=== PATIENT | male | born 1955 | race African-American/Black ===

== ENCOUNTER 2017-04-11 14:15 | Emergency (ER) | payer MEDICAID ==
[~2017-04-11] VITALS: Ht 182.9 cm; Wt 90.7 kg
[~2017-04-11 14:15] MED LIST: CLARITIN-D 121 EAC1 ORAL; IRON325 M1 PO; NKM
[2017-04-11 15:00] VITALS: BP 126/77
[2017-04-11] MEDS ORDERED: ZITHROMAX250 MG ORAL (15:07)
[2017-04-11 15:21] VITALS: BP 126/77
--- NOTE | 2017-04-11 15:57 | Emergency Room Report ---
History of Present Illness General Chief Complaint: Sore Throat Source: Patient Present Illness [facility] The patient is a 61-year-old male presenting for sore throat and subjective fever for the past day. He also admits to productive cough with white sputum. He states was treated for an ear infection 2 weeks prior with both oral antibiotics and eardrops. He states the pain of the ear completely resolved. Pain of the throat is now described as an 8/10 dull ache back of the throat and does not radiate. Pain worse with swallowing. He states he has noticed a swelling to the back of the throat. He denies any sick contacts recent travel. Denies any other symptoms including N, V, rash, neck pain/stiffness, dizziness Allergies: Coded Allergies: FISH DERIVED (Verified Allergy, Unknown, 06/13/16) PEANUT (Verified Allergy, Unknown, 06/13/16) Patient History Past Medical History: see triage record Pertinent Family History: none Reviewed Nursing Documentation: PMH: Agreed, PSxH: Agreed Nursing Documentation-PMH Past Medical History: No History, Except For Hx Asthma: Yes Review of Systems All Other Systems: negative except mentioned in HPI Physical Exam Vital Signs Date Time Temp Pulse Resp B/P Pulse Ox O2 Delivery O2 Flow Rate FiO2 04/11/17 14:43 99.9 107 16 126/77 97 Room Air Sp02 EP Interpretation: reviewed, normal General Appearance: no apparent distress, alert, GCS 15, non-toxic Head: normocephalic, atraumatic Eyes: bilateral eye PERRL, bilateral eye normal inspection ENT: hearing grossly normal, no angioedema, normal voice, TMs + canals normal, uvula midline, tonsillar swelling, pharyngeal erythema Neck: full range of motion, supple/symm/no masses Respiratory: chest non-tender, lungs clear, normal breath sounds, no wheezing, speaking full sentences Musculoskeletal: back normal, gait/station normal, normal range of motion, non- tender Neurologic: alert, oriented x3, responsive, motor strength/tone normal, sensory intact, speech normal Psychiatric: judgement/insight normal, memory normal, mood/affect normal, no suicidal/homicidal ideation Skin: normal color, no rash, warm/dry, well hydrated Lymphatic: adenopathy - cervical Medical Decision Making PA Attestation Dr. Rojo is my supervising physician. Patient management was discussed with my supervising physician Diagnostic Impression: Primary Impression: Pharyngitis, acute Qualified Codes: J02.9 - Acute pharyngitis, unspecified ER Course The patient is a 61-year-old male presenting for sore throat and subjective fever Differential diagnosis include but not limited to pharyngitis, sinusitis, AOM, bronchitis, PNA Physical exam: Pt is mildly tachycardic and temperature is elevated to 99.9F. Afebrile. No apparent distress HEENT exam: There is bilateral tonsillar edema, erythema. Uvula midline. Moist mucous membranes. There is bilateral cervical lymphadenopathy. Lungs are clear to auscultation bilaterally Skin is warm and dry. No rash The patient will be discharged home with a prescription for azithromycin and is given ER precautions. Patient will followup with primary care Last Vital Signs Date Time Temp Pulse Resp B/P Pulse Ox O2 Delivery O2 Flow Rate FiO2 04/11/17 14:43 99.9 107 16 126/77 97 Room Air Status: improved Disposition: HOME, SELF-CARE Condition: Improved Scripts Azithromycin* (ZITHROMAX*) 250 Mg Tablet 250 MG ORAL DAILY, #6 TAB 0 Refills Take two tables once daily for 1 day, then one tablet once daily for 4 days. Prov: ARABELLA SADLER 04/11/17 Referrals: NON PHYSICIAN (PCP) Patient Instructions: Pharyngitis Additional Instructions: I discussed my findings with the patient. All questions and concerns have been answered. Treatment and medication compliance have been addressed. I advised the patient that they need to follow up with PMD in 3-5 days. Return to ED if pain remains or worsens, cough worsens or remains, you notice blood in your sputum, you notice wheezing, you experience a fever, or if needed for any reason. Patient verbalized understanding of discharge instructions. ARABELLA SADLER April 11, 2017 15:57
== END 2017-04-11 15:40 | disposition home or self-care (01) ==
LOC: EMR 15:40
DX: J02.9 Acute pharyngitis, unspecified (principal); R59.0 Localized enlarged lymph nodes; R50.9 Fever, unspecified; R05 Cough; Z91.010 Allergy to peanuts; Z91.018 Allergy to other foods; J45.909 Unspecified asthma, uncomplicated
CPT/HCPCS: 99283

== ENCOUNTER 2017-06-26 22:47 | Emergency (ER) | payer MEDICAID ==
[~2017-06-26] VITALS: Ht 182.9 cm; Wt 81.6 kg
[~2017-06-26 22:47] MED LIST changes: +ZITHROMAX250 MG ORAL
[2017-06-26] MEDS ORDERED: BENADRYL25 M3 PO (23:03)
[2017-06-26 23:05] VITALS: BP 117/80
--- NOTE | 2017-06-26 23:21 | Emergency Room Report ---
History of Present Illness General Chief Complaint: Fever Source: Patient Present Illness HPI This is a 61-year-old male with no past medical history. His fiance said that he has a history of smoking when he was younger. Patient denies any smoking history now. Patient presents with chief complaint denies weakness or weight loss. Loss about 12 pounds in last week. This is unintentional. Also with left-sided chest pain and shortness of breath. She's been noting this for a while too. No fever or chills. No nausea no vomiting. No trauma. Allergies: Coded Allergies: FISH DERIVED (Verified Allergy, Unknown, 06/13/16) PEANUT (Verified Allergy, Unknown, 06/13/16) Patient History Past Medical History: none, see triage record, old chart reviewed Past Surgical History: none Pertinent Family History: none Social History: Denies: smoking - History of Immunizations: other Reviewed Nursing Documentation: PMH: Agreed, PSxH: Agreed Nursing Documentation-PMH Past Medical History: No History, Except For Hx Asthma: Yes Review of Systems Constitutional: Reports: malaise, weakness Eye: Denies: blurred vision, eye pain ENT: Denies: ear pain, nose congestion, throat swelling Respiratory: Denies: cough, shortness of breath Cardiovascular: Reports: chest pain, Denies: palpitations Gastrointestinal: Denies: abdominal pain, diarrhea, nausea, vomiting Musculoskeletal: Denies: back pain, joint pain Skin: Denies: rash Neurological: Denies: headache, numbness Endocrine: Denies: increased thirst, increased urine Hematologic/Lymphatic: Denies: easy bruising All Other Systems: negative except mentioned in HPI Physical Exam Vital Signs Date Time Temp Pulse Resp B/P Pulse Ox O2 Delivery O2 Flow Rate FiO2 06/26/17 22:56 102.4 134 16 117/80 98 Room Air vitals with fever Sp02 EP Interpretation: reviewed, normal General Appearance: well appearing, no apparent distress, alert Head: normocephalic, atraumatic Eyes: bilateral eye EOMI, bilateral eye PERRL ENT: hearing grossly normal, other - Thrush Neck: full range of motion, supple, no meningismus Respiratory: chest non-tender, lungs clear, normal breath sounds Cardiovascular #1: regular rate, rhythm, no murmur Gastrointestinal: normal bowel sounds, non tender, no mass, no organomegaly, no bruit, non-distended Musculoskeletal: back normal, gait/station normal, normal range of motion Psychiatric: mood/affect normal Skin: warm/dry Medical Decision Making Diagnostic Impression: Primary Impression: SIRS (systemic inflammatory response syndrome) Additional Impressions: UTI (urinary tract infection) Qualified Codes: N30.00 - Acute cystitis without hematuria Pericarditis Qualified Codes: I30.9 - Acute pericarditis, unspecified Thrush, oral Anemia Qualified Codes: D64.9 - Anemia, unspecified ER Course Patient present with chest pain, fever and weight loss. Concerning for possible neoplastic process. There is no obvious symptoms of neoplasm. He does have thrush however. He does have a urinary tract infection. I this. We' ll treat this and will have further workup as an outpatient. Explained this to the patient and family. They expressed understanding. no evidence of ACS, PE, dissection to name a few. as far as his pericardial effusion, there is no evidence of constriction. Patient has no respiratory distress or JVD. Lab Results Impression labs unremarkable EKG Diagnostic Results EKG Time: 02:21 Rate: normal Rhythm: NSR ST Segments: no acute changes Rhythm Strip Diag. Results Rhythm Strip Time: 02:21 EP Interpretation: yes Rate: 100 Rhythm: NSR, no PVC's, no ectopy Chest X-Ray Diagnostic Results Chest X-Ray Diagnostic Results : Chest X-Ray Ordered: Yes # of Views/Limited/Complete: 1 View Indication: Chest Pain EP Interpretation: Yes Interpretation: no consolidation, no effusion, no pneumothorax, other - Cardiomegaly Impression: No acute disease Interpreting ER Provider: Electronically signed by Yayo Cedillo MD CT/MRI/US Diagnostic Results CT/MRI/US Diagnostic Results : Imaging Test Ordered: CT chest Impression read by radiologist. Moderate pericardial effusion of 1.1 cm with thickening of the pericardium. Last Vital Signs Date Time Temp Pulse Resp B/P Pulse Ox O2 Delivery O2 Flow Rate FiO2 06/26/17 22:56 102.4 134 16 117/80 98 Room Air Status: improved Disposition: HOME, SELF-CARE Condition: Stable Scripts Amoxicillin/Potassium Clav 875-125* (AUGMENTIN 875-125 TABLET*) 1 Each Tablet 1 TAB ORAL TWICE A DAY, #14 TAB Prov: YAYO CEDILLO M.D. 06/27/17 Nystatin* (NYSTATIN*) 100,000 Unit/1 Ml Oral.susp 5 ML ORAL FOUR TIMES A DAY for 7 Days, ML Swish in the mouth and retain for as long as possible (several minutes) before swallowing Prov: YAYO CEDILLO M.D. 06/27/17 Ibuprofen* (MOTRIN*) 600 Mg Tablet 600 MG ORAL Q6H Y for For Pain, #30 TAB Prov: YAYO CEDILLO M.D. 06/27/17 Additional Instructions: followup with your Dr. in 2-3 days for recheck. Return if symptom worsen. YAYO CEDILLO M.D. Jun 26, 2017 23:21
[2017-06-26] MEDS ORDERED: Acetaminophen 500mg (ES) tab ORAL ONE (23:30)
[2017-06-27 00:12] LABS: BASOPHILS % (AUTO) 1.3 % (0.0-2.0); EOSINOPHILS % (AUTO) 0.4 % (0.0-3.0); LYMPHOCYTES % (AUTO) 13.5 % (20.0-45.0); MEAN CORPUSCULAR HGB CONC 33.4 G/DL (32.0-36.0); MEAN CORPUSCULAR VOLUME 87 FL (80-99); MEAN PLATELET VOLUME 5.6 FL (6.5-10.1); NEUTROPHILS % (AUTO) 76.8 % (45.0-75.0); PLATELET COUNT 379 K/UL (150-450); RED BLOOD COUNT 3.66 M/UL (4.70-6.10); RED CELL DISTRIBUTION WIDTH 13.2 % (11.6-14.8); WHITE BLOOD COUNT 5.9 K/UL (4.8-10.8)
[2017-06-27 00:15] LABS: APPEARANCE,URINE CLEAR; KETONES,URINE NEGATIVE (NEGATIVE); LEUKOCYTE ESTERASE ,URINE 2+ (NEGATIVE); NITRITE,URINE NEGATIVE (NEGATIVE); PH,URINE 5 (4.5-8.0); PROTEIN,URINE 3+ (NEGATIVE); UROBILINOGEN,URINE 1 MG/DL (0.0-1.0)
[2017-06-27 00:18] LABS: INR 1.1 (0.9-1.1); PROTHROMBIN TIME 11.8 SEC (9.30-11.50)
[2017-06-27 00:26] LABS: ALANINE AMINOTRANSFERASE 20 U/L (3-41); ALBUMIN/GLOBULIN RATIO 0.6 (1.0-2.7); ANION GAP 16 (5-15); ASPARTATE AMINO TRANSFERASE 38 U/L (5-40); CALCIUM 9.5 mg/dL (8.6-10.2); CARBON DIOXIDE 24 mEQ/L (20-30); CHLORIDE 93 mEQ/L (98-107); CREATININE 1.1 mg/dL (0.7-1.2); GLOMERULAR FILTRATION RATE > 60 mL/min (>60); HEMOLYSIS 0; SODIUM 133 mEQ/L (135-145); TOTAL PROTEIN 10.2 g/dL (6.6-8.7)
[2017-06-27 00:26] LABS: BACTERIA,URINE MODERATE /HPF; MUCUS,URINE FEW /LPF (NONE/OCC); RBC,URINE TNTC /HPF (0 - 0); SQUAMOUS EPITHELIAL CELL,UR FEW /LPF (NONE/OCC); WBC,URINE 60-80 /HPF (0 - 0)
[2017-06-27 00:27] LABS: ICTOTEST NEGATIVE
[2017-06-27] MEDS ORDERED: cefTRIAXone 1 GM in NS 55 ML IVPB ONE (01:00)
[2017-06-27] MEDS ORDERED: NYSTATIN100000 UN1 ORAL (02:24)
[2017-06-27] MEDS ORDERED: IBUPROFEN600 MG ORAL (02:24)
[2017-06-27] MEDS ORDERED: AUGMENTIN 875-1 EAC1 ORAL (02:24)
[2017-06-27 02:40] VITALS: BP 135/78
[2017-06-27 02:45] VITALS: BP 135/78
--- NOTE | 2017-06-27 11:23 | Diagnostic Imaging Report ---
Indication: SOB Technique: One view of the chest Comparison: 12/23/2011 Findings: The heart is enlarged. This is a new finding. There it is possible slight blunting of left costophrenic angle, small effusion not excludable. Is some atelectasis at the left lung base. Left upper lung, right lung and pleural space are clear. Impression: Cardiomegaly, new since 2011 Suspect small left pleural effusion and left basilar atelectasis
--- NOTE | 2017-06-27 11:37 | Diagnostic Imaging Report ---
ndication: Chest pain Technique: IV administration nonionic contrast. Spiral acquisitions obtained from the lung bases to the lung apices. Multiplanar and 3-D reconstructions were generated. Total dose length product 939 mGycm. CTDIvol(s) 12, 63, 25 mGy. Dose reduction achieved using automated exposure control Comparison: None Findings: Pulmonary arterial is suboptimal. There are no gross large vessel central pulmonary emboli, the peripheral emboli cannot be confidently excluded, PICC in the upper lobes. No evidence of thoracic aortic aneurysm or dissection demonstrated. Classic branching anatomy of the great neck vessels. Normal caliber pulmonary arteries. No evidence of right ventricular dilatation. There is a small left pleural effusion. Atelectasis and consolidation at the left lung base. Other more fine linear and reticular opacities in the left lower lobe and posterior left upper lobe likely represent areas of scarring scarring also seen in the anterolateral right lower lobe, medial right middle lobe, and right lung apex. There is a pericardial effusion which is circumferential, measures up to 17 mm in thickness, extends well up the aortic root. There are prominent prevascular space lymph nodes, which measure up to 15 mm long axis dimension. Prominent paratracheal lymph nodes measure up to 3 cm long axis dimension. There are also prominent borderline enlarged bilateral axillary nodes prominent bilateral cervical nodes are also evident. The bones are unremarkable. The included upper abdominal anatomy is remarkable for the presence of and splenic hilar lymph nodes. Impression: Limited exam due to suboptimal opacification of the pulmonary arteries Pericardial effusion, measuring up to 17 mm in thickness Small left pleural effusion Bilateral atelectatic changes and scarring, as described above. The above findings are in agreement with the preliminary report provided overnight by [facility] cardiology service Mediastinal and axillary borderline lymphadenopathy. This finding is not described on the preliminary report, was discussed by phone with Dr. Brewer in the emergency room at the time of interpretation The CT scanner at [facility] is accredited by the [employer] and the scans are performed using protocols designed to limit radiation exposure to as low as reasonably achievable to attain images of sufficient resolution adequate for diagnostic evaluation.
== END 2017-06-27 02:45 | disposition home or self-care (01) ==
LOC: EMR 23:20
DX: R65.10 Systemic inflammatory response syndrome (SIRS) of non-infectious origin without acute organ dysfunction (principal); N39.0 Urinary tract infection, site not specified; I31.9 Disease of pericardium, unspecified; B37.0 Candidal stomatitis; D64.9 Anemia, unspecified; J45.909 Unspecified asthma, uncomplicated; J90 Pleural effusion, not elsewhere classified; R53.1 Weakness
CPT/HCPCS: 36415; 71010; 71275; 80053; 80300; 81001; 83605; 85025; 85610; 85730; 86703; 87040; 87086; 93005; 96360; 96361; 96375; 99284; J0696; Q9967

== ENCOUNTER 2017-06-29 11:52 | Emergency (ER) | payer MEDICAID ==
[2017-06-29] VITALS (7 sets, daily range): BP systolic 102–135; BP diastolic 65–87
[~2017-06-29] VITALS: Ht 182.9 cm; Wt 85.7 kg
[~2017-06-29 11:52] MED LIST changes: +AUGMENTIN 875-1 EAC1 ORAL; +BENADRYL25 M3 PO; +IBUPROFEN600 MG ORAL; +NYSTATIN100000 UN1 ORAL
[2017-06-29 12:37] LABS: BASOPHILS % (AUTO) 1.4 % (0.0-2.0); LYMPHOCYTES % (AUTO) 7.4 % (20.0-45.0); MEAN CORPUSCULAR HGB CONC 31.3 G/DL (32.0-36.0); MEAN CORPUSCULAR VOLUME 86 FL (80-99); MEAN PLATELET VOLUME 6.4 FL (6.5-10.1); MONOCYTES % (AUTO) 9.2 % (1.0-10.0); PLATELET COUNT 391 K/UL (150-450); RED BLOOD COUNT 3.58 M/UL (4.70-6.10); RED CELL DISTRIBUTION WIDTH 13.5 % (11.6-14.8); WHITE BLOOD COUNT 6.9 K/UL (4.8-10.8)
[2017-06-29] MEDS ORDERED: Calcium Gluconate 1gm/10ml vial IVP ONE (12:45)
[2017-06-29] MEDS ORDERED: Diltiazem 25mg/5ml IV ONE ×2 (12:45→14:15)
[2017-06-29 13:04] LABS: TROPONIN I < 0.30 ng/mL (<=0.30)
[2017-06-29 13:08] LABS: ALANINE AMINOTRANSFERASE 25 U/L (3-41); ALBUMIN/GLOBULIN RATIO 0.7 (1.0-2.7); ANION GAP 14 (5-15); ASPARTATE AMINO TRANSFERASE 30 U/L (5-40); CARBON DIOXIDE 22 mEQ/L (20-30); CHLORIDE 99 mEQ/L (98-107); CREATININE 0.9 mg/dL (0.7-1.2); GLOMERULAR FILTRATION RATE > 60 mL/min (>60); HEMOLYSIS 1; POTASSIUM 4.1 mEQ/L (3.4-4.9); SODIUM 135 mEQ/L (135-145); TOTAL PROTEIN 8.7 g/dL (6.6-8.7)
[2017-06-29 13:18] LABS: CKMB 1.6 ng/mL (< 6.7)
--- NOTE | 2017-06-29 13:34 | Emergency Room Report ---
History of Present Illness General Chief Complaint: Chest Pain Source: Patient Present Illness HPI 61-year-old male no significant past medical history presenting with chest pain and shortness of breath. Patient was seen in ED a few days ago diagnosed with pericarditis. Patient followed up with his primary care doctor today who sent him to the ER for abnormal EKG Patient states that he has had intermittent chest pain and shortness of breath for 4-5 days. Chest pain occurs at rest and on exertion. Patient notes intermittent dyspnea. Patient also reports that he has been having a few days of intermittent palpitations. Patient states subjective fever and chills. Denies cardiac workup in the past. Allergies: Coded Allergies: FISH DERIVED (Verified Allergy, Unknown, 06/13/16) PEANUT (Verified Allergy, Unknown, 06/13/16) Patient History Past Medical History: none Past Surgical History: none Nursing Documentation-[facility] Past Medical History: No History, Except For Hx Asthma: Yes Review of Systems Respiratory: Reports: shortness of breath Cardiovascular: Reports: chest pain, palpitations All Other Systems: negative except mentioned in HPI Physical Exam Vital Signs Date Time Temp Pulse Resp B/P Pulse Ox O2 Delivery O2 Flow Rate FiO2 06/29/17 12:09 98.2 157 19 128/107 100 Room Air Sp02 EP Interpretation: reviewed, normal General Appearance: normal inspection, well appearing, no apparent distress, alert, GCS 15, non-toxic, other - slight anxious appearing however not diaphoretic, non toxic Head: normocephalic, atraumatic Eyes: bilateral eye EOMI, bilateral eye PERRL, bilateral eye normal inspection ENT: normal ENT inspection, normal pharynx, normal voice, moist mucus membranes Neck: normal inspection, full range of motion, supple, no bony tend Respiratory: normal inspection, lungs clear, normal breath sounds, no respiratory distress, no retraction, no wheezing, speaking full sentences, chest symmetrical Cardiovascular #1: normal inspection, normal capillary refill, tachycardia, irregularly irregular Gastrointestinal: normal inspection, non tender, soft, non-distended, no guarding Genitourinary: no CVA tenderness Musculoskeletal: normal inspection, back normal, normal range of motion, non- tender Neurologic: normal inspection, alert, oriented x3, responsive, motor strength/ tone normal, sensory intact, normal gait, speech normal Psychiatric: normal inspection, judgement/insight normal, memory normal Skin: normal inspection, normal color, no rash, warm/dry, well hydrated, normal turgor Medical Decision Making Diagnostic Impression: Primary Impression: Chest pain Additional Impressions: Pericardial effusion Atrial fibrillation with rapid ventricular response ER Course 61 yo yo M with no sig pmhx p/w cp/sob found to be in afib with rvr DDX: acs / pericarditis / pericardial effusion / afib with rvr / infectious pna/ uti Plan: IV access, obtain labs including troponin, EKG, CXR ASA cardizem anticipate admission ER course: Patient was treated with ASA. pts HR elevated at 160s with borderline BP, given 1L NS bedside sono - moderate pericardial effusion CXR: +cardiomegaly patient received IV cardizem x 2 also 30mg PO HR improved to 110-120s Disposition: Patient requires admission for chest pain. Pt will be transferred to [facility] d/w hospitalist Dr Stratton who accepted xfr EKG Diagnostic Results Rate: tachycardiac Rhythm: other - afib with RVR ST Segments: other - TWI or T wave flattening in lateral leads ASA given to the pt in ED: Yes Rhythm Strip Diag. Results EP Interpretation: yes Other Impression afib with rvr Chest X-Ray Diagnostic Results Chest X-Ray Diagnostic Results : Chest X-Ray Ordered: Yes # of Views/Limited/Complete: 1 View Indication: Chest Pain Interpretation: no consolidation Impression: Other - cardiomegaly Interpreting ER Provider: electronically signed by dr. jaimee lynn MD Last Vital Signs Date Time Temp Pulse Resp B/P Pulse Ox O2 Delivery O2 Flow Rate FiO2 06/29/17 12:55 158 112/77 06/29/17 12:12 19 Room Air 06/29/17 12:12 100 06/29/17 12:09 98.2 Disposition: XFER SHT-TRM HOSP Condition: Critical Referrals: [facility],REFERRING (PCP) Jaimee Lynn M.D. Jun 29, 2017 13:34
--- NOTE | 2017-06-29 14:21 | Diagnostic Imaging Report ---
Indication: PAIN Technique: One view of the chest Comparison: 06/26/2017 Findings: The heart is enlarged. There is increased consolidation the retrocardiac region. There is increased pleural fluid on the left. Left upper lung, right lung and pleural space are clear. Impression: Increasing left basilar infiltrate and pleural fluid, over 3 days
[2017-06-29] MEDS ORDERED: NKM (18:15)
== END 2017-06-29 21:30 | disposition short-term general hospital (02) ==
LOC: EMR 12:28
DX: R07.9 Chest pain, unspecified (principal); I31.3 Pericardial effusion (noninflammatory); I48.91 Unspecified atrial fibrillation; Z91.010 Allergy to peanuts; Z91.013 Allergy to seafood; I51.7 Cardiomegaly
CPT/HCPCS: 36415; 71010; 80053; 82550; 82553; 84484; 85025; 93005; 96360; 96375; 99285; J0610

== ENCOUNTER 2017-09-04 21:24 | Emergency (ER) | payer MEDICAID ==
[~2017-09-04] VITALS: Ht 182.9 cm; Wt 83.9 kg
[2017-09-04 21:40] VITALS: BP 159/94
[2017-09-04 22:57] VITALS: BP 159/94
--- NOTE | 2017-09-05 02:51 | Emergency Room Report ---
History of Present Illness General Chief Complaint: Foreign Body Source: Patient Present Illness HPI 62-year-old male presents ED for evaluation. States that tonight he was eating food and believes a bone piece may be lodged. Patient describes a sensation of foreign body in his midchest. It currently denies any symptoms at this time. States he is able to breathe without difficulty. Denies shortness of breath. Denies difficulty swallowing. No other aggravating relieving factors. Denies any other associated symptoms Allergies: Coded Allergies: FISH DERIVED (Verified Allergy, Unknown, 06/13/16) PEANUT (Verified Allergy, Unknown, 06/13/16) Patient History Past Medical History: HTN, asthma Past Surgical History: none Pertinent Family History: none Social History: Denies: smoking, alcohol use, drug use Immunizations: UTD Reviewed Nursing Documentation: PMH: Agreed, PSxH: Agreed Nursing Documentation-PMH Past Medical History: No History, Except For Hx Cardiac Problems: Yes Hx Hypertension: Yes Hx Asthma: Yes Review of Systems All Other Systems: negative except mentioned in HPI Physical Exam Vital Signs Date Time Temp Pulse Resp B/P (MAP) Pulse Ox O2 Delivery O2 Flow Rate FiO2 09/04/17 21:35 97.7 66 20 159/94 100 Room Air Sp02 EP Interpretation: reviewed, normal General Appearance: no apparent distress, alert, GCS 15, non-toxic Head: normocephalic, atraumatic Eyes: bilateral eye normal inspection, bilateral eye PERRL ENT: hearing grossly normal, normal pharynx, no angioedema, normal voice Neck: full range of motion, supple/symm/no masses Respiratory: chest non-tender, lungs clear, normal breath sounds, speaking full sentences Cardiovascular #1: regular rate, rhythm, no edema Cardiovascular #2: 2+ carotid (R), 2+ carotid (L), 2+ radial (R), 2+ radial (L) , 2+ dorsalis pedis (R), 2+ dorsalis pedis (L) Gastrointestinal: normal bowel sounds, non tender, soft, non-distended, no guarding, no rebound Rectal: deferred Genitourinary: normal inspection, no CVA tenderness Musculoskeletal: back normal, gait/station normal, normal range of motion, non- tender Neurologic: alert, oriented x3, responsive, motor strength/tone normal, sensory intact, speech normal Psychiatric: judgement/insight normal, memory normal, mood/affect normal, no suicidal/homicidal ideation Reflexes: 3+ bicep (R), 3+ bicep (L), 3+ tricep (R), 3+ tricep (L), 3+ knee (R) , 3+ knee (L) Skin: normal color, no rash, warm/dry, well hydrated Lymphatic: no adenopathy Medical Decision Making Diagnostic Impression: Primary Impression: Hx of swallowed foreign body ER Course 62-year-old male presents to ED with sensation of foreign body after eating Differential-obstructed airway, foreign body, gastritis Patient placed on stretcher. After initial history , physical exam reveals a middle-age male in no acute distress. There is no evidence of foreign body and a pharynx. No stridor. Lungs clear Chest x-ray shows no evidence of foreign body. I discussed findings with the patient. Given that patient is swallowing comfortably without any discomfort at this time and no shortness of breath I do not see reason for further intervention such as CT and/or GI consultation patient agrees with plan and will followup with PMD. Diagnosis- history of swallowed foreign body Stable discharged to home. Followup with PMD. Return to ED if symptoms recur or worsen Chest X-Ray Diagnostic Results Chest X-Ray Diagnostic Results : Chest X-Ray Ordered: Yes # of Views/Limited/Complete: 1 View Indication: Shortness of Breath EP Interpretation: Yes Interpretation: no consolidation, no effusion, no pneumothorax, no acute cardiopulmonary disease Impression: No acute disease Electronically Signed by: Electronically signed by Jossue Rojo MD Last Vital Signs Date Time Temp Pulse Resp B/P (MAP) Pulse Ox O2 Delivery O2 Flow Rate FiO2 09/04/17 22:57 97.7 20 159/94 100 Room Air 09/04/17 21:35 66 Status: improved Disposition: HOME, SELF-CARE Condition: Stable Patient Instructions: Swallowed Foreign Body, Adult JOSSUE ROJO M.D. Sep 05, 2017 02:51
--- NOTE | 2017-09-05 09:02 | Diagnostic Imaging Report ---
Indication: COUGH Technique: One view of the chest Comparison: 06/29/2017 Findings: Previously demonstrated left basilar opacity is no longer evident. Lungs and pleural spaces are currently clear. Heart is upper limits of normal in size. Impression: No acute process This agrees with the preliminary interpretation provided by the emergency room physician
== END 2017-09-04 22:57 | disposition home or self-care (01) ==
LOC: EMR 22:16
DX: T18.9XXA Foreign body of alimentary tract, part unspecified, initial encounter (principal); X58.XXXA Exposure to other specified factors, initial encounter; Y92.89 Other specified places as the place of occurrence of the external cause; I10 Essential (primary) hypertension; J45.909 Unspecified asthma, uncomplicated; Z91.010 Allergy to peanuts; Z91.018 Allergy to other foods
CPT/HCPCS: 71010; 99283

== ENCOUNTER 2017-12-13 07:36 | Emergency (ER) | payer MEDICAID ==
[~2017-12-13] VITALS: Ht 182.9 cm; Wt 93.0 kg
--- NOTE | 2017-12-13 08:01 | Emergency Room Report ---
History of Present Illness General Chief Complaint: Male Urogenital Problems Source: Patient Present Illness HPI Patient presents with brown urine some dysuria and also right groin pain. This has been going on for several days. No h/o stones, fever, dysuria, problems with stream. Patient was diagnosed with lupus last July. He is on multiple medications at this time. He's had intermittent problems with urine and with his kidneys during hospitalization. Recently has been somewhat improved. He's been taking Advil for pain. He's claims to groin pain is 2/10. On prednisone 5 mg. Also other lupus meds. The patient denies fevers or chills. He has had a rash on his left upper arm that's been itching it is somewhat improved. His doctor said this was not related to lupus. In addition he's had joint pain in his hands bilaterally. Allergies: Coded Allergies: FISH DERIVED (Verified Allergy, Unknown, 06/13/16) PEANUT (Verified Allergy, Unknown, 06/13/16) Patient History Past Medical History: see triage record Past Surgical History: other - R cataract surgery Social History Narrative at home - planning on going to [employer] Reviewed Nursing Documentation: PMH: Agreed, PSxH: Agreed Nursing Documentation-PMH Hx Cardiac Problems: Yes Hx Hypertension: Yes Hx Asthma: Yes Hx COPD: No - LUPUS Hx Gastrointestinal Problems: Yes - HEP C Review of Systems All Other Systems: negative except mentioned in HPI Physical Exam Vital Signs Date Time Temp Pulse Resp B/P (MAP) Pulse Ox O2 Delivery O2 Flow Rate FiO2 12/13/17 07:39 97.9 71 20 160/88 99 Room Air Sp02 EP Interpretation: reviewed, normal General Appearance: well appearing, no apparent distress, GCS 15 Head: normocephalic Eyes: right eye other - sylastic lens, bilateral eye normal inspection ENT: moist mucus membranes Neck: supple Respiratory: lungs clear, normal breath sounds Cardiovascular #1: regular rate, rhythm Cardiovascular #2: 2+ radial (R) Gastrointestinal: normal inspection, normal bowel sounds, non tender, no mass, non-distended, no hernia Genitourinary: no CVA tenderness Musculoskeletal: back normal, gait/station normal, normal range of motion Neurologic: alert, oriented x3, grossly normal Psychiatric: mood/affect normal Skin: normal inspection, rash - L upper arm - posteior, maculopapular, other - maculopapular rash L upper arm Medical Decision Making Diagnostic Impression: Primary Impression: Hematuria Qualified Codes: R31.9 - Hematuria, unspecified Additional Impressions: UTI (urinary tract infection) Qualified Codes: N30.01 - Acute cystitis with hematuria Lupus Qualified Codes: M32.9 - Systemic lupus erythematosus, unspecified ER Course Patient presents with dark urine and groin pain. Differential includes UTI, pyelonephritis, renal stone, urinary tract bleeding amongst others he's at somewhat increased risk for renal problems with his lipids. Evaluation will be with labs and ultrasound. The patient be treated with IV hydration and Tylenol. Labs with hematuria and pyuria, normal renal function. Elevated ESR. Abd film unremarkable. U/S no obstruction or stone. Improved with treatment. Rocephin given in ED as well as prednisone. Told for need to follow up and discussed reasons for return. Warned about advil. Discussed lab findings and sig of elevated ESR. Patient stable for outpatient observation and treatment. Laboratory Tests Test 12/13/17 07:45 12/13/17 08:06 Urine Color Pale yellow Urine Appearance Slightly cloudy Urine pH 6 (4.5-8.0) Urine Specific [place] 1.015 (1.005-1.035) Urine Protein 1+ (NEGATIVE) H Urine Glucose (UA) Negative (NEGATIVE) Urine Ketones Negative (NEGATIVE) Urine Occult Blood 5+ (NEGATIVE) H Urine Nitrite Negative (NEGATIVE) Urine Bilirubin Negative (NEGATIVE) Urine Urobilinogen Normal MG/DL (0.0-1.0) Urine Leukocyte Esterase 2+ (NEGATIVE) H Urine RBC Tntc /HPF (0 - 0) H Urine WBC 10-15 /HPF (0 - 0) H Urine Squamous Epithelial Cells Few /LPF (NONE/OCC) Urine Bacteria Few /HPF (NONE) White Blood Count 3.8 K/UL (4.8-10.8) L Red Blood Count 4.05 M/UL (4.70-6.10) L Hemoglobin 12.5 G/DL (14.2-18.0) L Hematocrit 38.3 % (42.0-52.0) L Mean Corpuscular Volume 94 FL (80-99) Mean Corpuscular Hemoglobin 30.7 PG (27.0-31.0) Mean Corpuscular Hemoglobin Concent 32.6 G/DL (32.0-36.0) Red Cell Distribution Width 13.0 % (11.6-14.8) Platelet Count 264 K/UL (150-450) Mean Platelet Volume 6.1 FL (6.5-10.1) L Neutrophils (%) (Auto) 49.1 % (45.0-75.0) Lymphocytes (%) (Auto) 34.6 % (20.0-45.0) Monocytes (%) (Auto) 12.4 % (1.0-10.0) H Eosinophils (%) (Auto) 3.1 % (0.0-3.0) H Basophils (%) (Auto) 0.9 % (0.0-2.0) Erythrocyte Sedimentation Rate 55 MM/HR (0-20) H Prothrombin Time 11.0 SEC (9.30-11.50) Prothrombin Time INR 1.1 (0.9-1.1) PTT 25 SEC (23-33) Sodium Level 143 MMOL/L (136-145) Potassium Level 3.5 MMOL/L (3.5-5.1) Chloride Level 108 MMOL/L (98-107) H Carbon Dioxide Level 26 MMOL/L (21-32) Anion Gap 9 mmol/L (5-15) Blood Urea Nitrogen 14 mg/dL (7-18) Creatinine 1.0 MG/DL (0.55-1.30) Estimate Glomerular Filtration Rate > 60 mL/min (>60) Glucose Level 84 MG/DL (74-106) Calcium Level 9.2 MG/DL (8.5-10.1) Total Bilirubin 0.2 MG/DL (0.2-1.0) Aspartate Amino Transferase (AST) 30 U/L (15-37) Alanine Aminotransferase (ALT) 43 U/L (12-78) Alkaline Phosphatase 58 U/L (46-116) Total Protein 7.8 G/DL (6.4-8.2) Albumin 3.9 G/DL (3.4-5.0) Globulin 3.9 g/dL Albumin/Globulin Ratio 1.0 (1.0-2.7) Lipase 74 U/L (73-393) CT/MRI/US Diagnostic Results CT/MRI/US Diagnostic Results : Imaging Test Ordered: renal u/s Impression Impression: Mild fullness to the right renal collection system, significance uncertain given the demonstration of bilateral ureteral jets within the bladder No acute process otherwise Post void bladder volume 42 mL. Last Vital Signs Date Time Temp Pulse Resp B/P (MAP) Pulse Ox O2 Delivery O2 Flow Rate FiO2 12/13/17 12:51 59 18 162/98 99 Room Air 12/13/17 07:39 97.9 Status: improved Disposition: HOME, SELF-CARE Condition: Improved Scripts Prednisone* (PREDNISONE*) 10 Mg Tablet 10 MG ORAL DAILY, #21 TAB 0 Refills 4 po QD X 2, 3 po QD X 2, 2 po QD X 2, 1 po QD X 4 Prov: Robert Brewer M.D. 12/13/17 Cephalexin* (KEFLEX*) 500 Mg Capsule 500 MG ORAL Q6H, #28 CAP 0 Refills Prov: Robert Brewer M.D. 12/13/17 Robert Brewer M.D. Dec 13, 2017 08:01
[2017-12-13 08:08] LABS: APPEARANCE,URINE SLIGHTLY CLOUDY; BILIRUBIN, URINE NEGATIVE (NEGATIVE); COLOR,URINE PALE YELLOW; GLUCOSE, URINE (UA) NEGATIVE (NEGATIVE); KETONES,URINE NEGATIVE (NEGATIVE); LEUKOCYTE ESTERASE ,URINE 2+ (NEGATIVE); NITRITE,URINE NEGATIVE (NEGATIVE); PH,URINE 6 (4.5-8.0); PROTEIN,URINE 1+ (NEGATIVE); UROBILINOGEN,URINE NORMAL MG/DL (0.0-1.0)
[2017-12-13 08:26] LABS: BASOPHILS % (AUTO) 0.9 % (0.0-2.0); EOSINOPHILS % (AUTO) 3.1 % (0.0-3.0); HEMATOCRIT 38.3 % (42.0-52.0); HEMOGLOBIN 12.5 G/DL (14.2-18.0); LYMPHOCYTES % (AUTO) 34.6 % (20.0-45.0); MEAN CORPUSCULAR VOLUME 94 FL (80-99); MONOCYTES % (AUTO) 12.4 % (1.0-10.0); NEUTROPHILS % (AUTO) 49.1 % (45.0-75.0); PLATELET COUNT 264 K/UL (150-450); RED BLOOD COUNT 4.05 M/UL (4.70-6.10); WHITE BLOOD COUNT 3.8 K/UL (4.8-10.8)
[2017-12-13] MEDS ORDERED: AMLODIPINE BESY10 MG ORAL (08:27)
[2017-12-13] MEDS ORDERED: ATORVASTATIN CA40 MG ORAL (08:27)
[2017-12-13] MEDS ORDERED: PLAQUENIL200 MG ORAL (08:27)
[2017-12-13] MEDS ORDERED: CELLCEPT500 MG ORAL (08:27)
[2017-12-13] MEDS ORDERED: ASPIR 8181 MG ORAL (08:27)
[2017-12-13] MEDS ORDERED: MULTAQ400 MG ORAL (08:27)
[2017-12-13] MEDS ORDERED: METOPROLOL SUCC50 MG ORAL (08:27)
[2017-12-13] MEDS ORDERED: PREDNISOLO15 MG/5 M1 ORAL (08:27)
[2017-12-13 08:36] LABS: ANION GAP 9 mmol/L (5-15); BLOOD UREA NITROGEN 14 mg/dL (7-18); CALCIUM 9.2 MG/DL (8.5-10.1); CARBON DIOXIDE 26 MMOL/L (21-32); CHLORIDE 108 MMOL/L (98-107); POTASSIUM 3.5 MMOL/L (3.5-5.1); SODIUM 143 MMOL/L (136-145)
[2017-12-13 08:38] LABS: INR 1.1 (0.9-1.1)
[2017-12-13 08:40] LABS: ALANINE AMINOTRANSFERASE 43 U/L (12-78); ALBUMIN 3.9 G/DL (3.4-5.0); ALKALINE PHOSPHATASE 58 U/L (46-116); ASPARTATE AMINO TRANSFERASE 30 U/L (15-37); BILIRUBIN,TOTAL 0.2 MG/DL (0.2-1.0)
[2017-12-13] MEDS ORDERED: cefTRIAXone 1 GM in NS 55 ML IVPB ONE (09:15)
--- NOTE | 2017-12-13 10:20 | Diagnostic Imaging Report ---
Indication: Hematuria Technique: Grayscale and duplex images of the kidneys, retroperitoneum, and bladder were obtained. Comparison: Findings: Right kidney measures 12 cm in length. Left kidney measures 11.8 cm in length. Both kidneys demonstrate normal echogenicity. No left hydronephrosis. Minimal fullness of the right renal collecting system is noted.. No focal abnormality other than a prominent: column of [place] on the left. Normal inferior vena cava. Bladder is distended prevoid, prevoid volume 366 mL. Postvoid bladder volume is 42 mL. Bilateral ureteral jets are present Impression: Mild fullness to the right renal collection system, significance uncertain given the demonstration of bilateral ureteral jets within the bladder No acute process otherwise Post void bladder volume 42 mL.
[2017-12-13] MEDS ORDERED: KEFLEX500 MG ORAL (12:14)
[2017-12-13] MEDS ORDERED: PREDNISONE10 MG ORAL (12:14)
[2017-12-13 12:51] VITALS: BP 162/98
== END 2017-12-13 12:53 | disposition home or self-care (01) ==
LOC: EMR 08:07
DX: N30.01 Acute cystitis with hematuria (principal); M32.9 Systemic lupus erythematosus, unspecified; J45.909 Unspecified asthma, uncomplicated; B19.20 Unspecified viral hepatitis C without hepatic coma; I10 Essential (primary) hypertension; Z91.013 Allergy to seafood; Z91.010 Allergy to peanuts
CPT/HCPCS: 36415; 76775; 80053; 81003; 83690; 85025; 85610; 85651; 85730; 87086; 96361; 96365; 99284; J0696; J7512

== ENCOUNTER 2018-06-06 16:54 | Emergency (ER) | payer MEDICAID ==
[~2018-06-06] VITALS: Ht 182.9 cm; Wt 90.7 kg
[~2018-06-06 16:54] MED LIST changes: +AMLODIPINE BESY10 MG ORAL; +ASPIR 8181 MG ORAL; +ATORVASTATIN CA40 MG ORAL; +CELLCEPT500 MG ORAL; +KEFLEX500 MG ORAL; +METOPROLOL SUCC50 MG ORAL; +MULTAQ400 MG ORAL; +PLAQUENIL200 MG ORAL; +PREDNISOLO15 MG/5 M1 ORAL; +PREDNISONE10 MG ORAL
[2018-06-06 18:12] VITALS: BP 153/95
[2018-06-06 18:29] LABS: BASOPHILS % (AUTO) 1.5 % (0.0-2.0); EOSINOPHILS % (AUTO) 6.3 % (0.0-3.0); HEMATOCRIT 33.2 % (42.0-52.0); HEMOGLOBIN 10.9 G/DL (14.2-18.0); MEAN CORPUSCULAR VOLUME 89 FL (80-99); MONOCYTES % (AUTO) 5.5 % (1.0-10.0); NEUTROPHILS % (AUTO) 62.7 % (45.0-75.0); PLATELET COUNT 195 K/UL (150-450); RED BLOOD COUNT 3.73 M/UL (4.70-6.10); RED CELL DISTRIBUTION WIDTH 12.5 % (11.6-14.8)
[2018-06-06 18:31] LABS: APPEARANCE,URINE CLEAR; BILIRUBIN, URINE NEGATIVE (NEGATIVE); COLOR,URINE PALE YELLOW; GLUCOSE, URINE (UA) NEGATIVE (NEGATIVE); KETONES,URINE NEGATIVE (NEGATIVE); LEUKOCYTE ESTERASE ,URINE 2+ (NEGATIVE); NITRITE,URINE NEGATIVE (NEGATIVE); PH,URINE 6 (4.5-8.0); PROTEIN,URINE 2+ (NEGATIVE); UROBILINOGEN,URINE NORMAL MG/DL (0.0-1.0)
[2018-06-06 18:42] LABS: INR 1.1 (0.9-1.1)
[2018-06-06 18:45] LABS: ANION GAP 10 mmol/L (5-15); BLOOD UREA NITROGEN 16 mg/dL (7-18); CALCIUM 9.2 MG/DL (8.5-10.1); CARBON DIOXIDE 26 MMOL/L (21-32); CHLORIDE 103 MMOL/L (98-107); SODIUM 139 MMOL/L (136-145)
[2018-06-06 18:50] LABS: ALANINE AMINOTRANSFERASE 34 U/L (12-78); ALBUMIN 3.8 G/DL (3.4-5.0); ALBUMIN/GLOBULIN RATIO 0.8 (1.0-2.7); ALKALINE PHOSPHATASE 64 U/L (46-116); ASPARTATE AMINO TRANSFERASE 30 U/L (15-37); BILIRUBIN,TOTAL 0.4 MG/DL (0.2-1.0)
--- NOTE | 2018-06-06 19:43 | Emergency Room Report ---
History of Present Illness General Chief Complaint: Male Urogenital Problems Source: Patient Present Illness HPI This patient complains of hematuria. He does not have pain. He denies difficulty urinating or burning with urination. He states this is been going on for several weeks, possibly intermittently for months. He denies fever or chills. He denies nausea or vomiting. He denies abdominal pain. He does have an appointment with a urologist in 2 days. He has no other complaints. Allergies: Coded Allergies: FISH DERIVED (Verified Allergy, Unknown, 06/13/16) PEANUT (Verified Allergy, Unknown, 06/13/16) Patient History Past Medical History: see triage record, HTN, COPD, other - Lupus, Social History: Reports: smoking, alcohol use, drug use Reviewed Nursing Documentation: PMH: Agreed; PSxH: Agreed Nursing Documentation-PMH Hx Cardiac Problems: Yes Hx Hypertension: Yes Hx Asthma: Yes Hx COPD: No - LUPUS Hx Gastrointestinal Problems: Yes - HEP C Review of Systems All Other Systems: negative except mentioned in HPI Physical Exam Vital Signs Date Time Temp Pulse Resp B/P (MAP) Pulse Ox O2 Delivery O2 Flow Rate FiO2 06/06/18 17:02 98.1 76 16 153/95 97 Room Air 98.1 Sp02 EP Interpretation: reviewed, normal General Appearance: no apparent distress, alert, GCS 15, non-toxic Head: normocephalic, atraumatic Eyes: bilateral eye normal inspection, bilateral eye PERRL ENT: hearing grossly normal, normal pharynx, no angioedema, normal voice Neck: full range of motion, supple/symm/no masses Respiratory: chest non-tender, lungs clear, normal breath sounds, speaking full sentences Cardiovascular #1: regular rate, rhythm, no edema Gastrointestinal: normal bowel sounds, non tender, soft, non-distended, no guarding, no rebound Rectal: deferred Musculoskeletal: back normal, gait/station normal, normal range of motion, non- tender Neurologic: alert, oriented x3, responsive, motor strength/tone normal, sensory intact, speech normal Psychiatric: judgement/insight normal, memory normal, mood/affect normal, no suicidal/homicidal ideation Skin: normal color, no rash, warm/dry, well hydrated Medical Decision Making Diagnostic Impression: Primary Impression: Hematuria ER Course The patient has hematuria. He has painless hematuria so is concerned about possible malignancy. I obtained a CT of the abdomen and pelvis and this showed an area of thickening in the distal right ureter. This is nonspecific. He does have mild hydronephrosis on that side. The patient does not have evidence of a urinary tract infection or urolithiasis. The patient has an appointment with a urologist in 2 days. This patient will need a follow-up with the urologist as previously scheduled. At this time, I did not identify an emergency medical condition. The patient was instructed on the importance of close follow-up with the urologist. The patient is given return precautions and follow-up instructions. Laboratory Tests Test 06/06/18 18:00 06/06/18 18:20 White Blood Count 5.0 K/UL (4.8-10.8) Red Blood Count 3.73 M/UL (4.70-6.10) L Hemoglobin 10.9 G/DL (14.2-18.0) L Hematocrit 33.2 % (42.0-52.0) L Mean Corpuscular Volume 89 FL (80-99) Mean Corpuscular Hemoglobin 29.1 PG (27.0-31.0) Mean Corpuscular Hemoglobin Concent 32.7 G/DL (32.0-36.0) Red Cell Distribution Width 12.5 % (11.6-14.8) Platelet Count 195 K/UL (150-450) Mean Platelet Volume 5.5 FL (6.5-10.1) L Neutrophils (%) (Auto) 62.7 % (45.0-75.0) Lymphocytes (%) (Auto) 24.0 % (20.0-45.0) Monocytes (%) (Auto) 5.5 % (1.0-10.0) Eosinophils (%) (Auto) 6.3 % (0.0-3.0) H Basophils (%) (Auto) 1.5 % (0.0-2.0) Prothrombin Time 11.1 SEC (9.30-11.50) Prothrombin Time INR 1.1 (0.9-1.1) PTT 26 SEC (23-33) Sodium Level 139 MMOL/L (136-145) Potassium Level 4.0 MMOL/L (3.5-5.1) Chloride Level 103 MMOL/L (98-107) Carbon Dioxide Level 26 MMOL/L (21-32) Anion Gap 10 mmol/L (5-15) Blood Urea Nitrogen 16 mg/dL (7-18) Creatinine 1.0 MG/DL (0.55-1.30) Estimate Glomerular Filtration Rate > 60 mL/min (>60) Glucose Level 83 MG/DL (74-106) Calcium Level 9.2 MG/DL (8.5-10.1) Total Bilirubin 0.4 MG/DL (0.2-1.0) Aspartate Amino Transferase (AST) 30 U/L (15-37) Alanine Aminotransferase (ALT) 34 U/L (12-78) Alkaline Phosphatase 64 U/L (46-116) Total Protein 8.7 G/DL (6.4-8.2) H Albumin 3.8 G/DL (3.4-5.0) Globulin 4.9 g/dL Albumin/Globulin Ratio 0.8 (1.0-2.7) L Urine Color Pale yellow Urine Appearance Clear Urine pH 6 (4.5-8.0) Urine Specific [place] 1.005 (1.005-1.035) Urine Protein 2+ (NEGATIVE) H Urine Glucose (UA) Negative (NEGATIVE) Urine Ketones Negative (NEGATIVE) Urine Occult Blood 5+ (NEGATIVE) H Urine Nitrite Negative (NEGATIVE) Urine Bilirubin Negative (NEGATIVE) Urine Urobilinogen Normal MG/DL (0.0-1.0) Urine Leukocyte Esterase 2+ (NEGATIVE) H Urine RBC 5-10 /HPF (0 - 0) H Urine WBC 2-4 /HPF (0 - 0) Urine Squamous Epithelial Cells None /LPF (NONE/OCC) Urine Bacteria Few /HPF (NONE) CT/MRI/US Diagnostic Results CT/MRI/US Diagnostic Results : Imaging Test Ordered: CT abd/pelvis Impression There is an area of thickening in the right ureter. No stone. No other abnormalities other than mild right hydronephrosis. Please see official report in the EMR. Last Vital Signs Date Time Temp Pulse Resp B/P (MAP) Pulse Ox O2 Delivery O2 Flow Rate FiO2 06/06/18 18:12 76 16 153/95 97 Room Air 06/06/18 17:02 98.1 98.1 Status: improved Disposition: HOME, SELF-CARE Condition: Improved Referrals: [facility],REFERRING (PCP) Kathrin Ko DO Jun 06, 2018 19:43
[2018-06-06 20:00] VITALS: BP 149/88
--- NOTE | 2018-06-07 08:37 | Diagnostic Imaging Report ---
Indication: Abdominal pain Technique: Spiral acquisitions obtained through the abdomen and pelvis. No oral contrast utilized, per emergency room physician request No IV contrast utilized, per referring physician request.. Multiplanar reconstructions were generated. Total dose length product 837.34 mGycm. CTDIvol(s) 15.47 mGy. Dose reduction achieved using automated exposure control Comparison: None Findings: There is mild right hydronephrosis. There is proximal right hydroureter. Hydroureter extends to the level of the mid ureter where the ureter becomes normal in caliber. No renal or ureteral calculus demonstrated. There is mild periureteral fat stranding just proximal to the point of caliber change. There is equivocal slightly higher attenuation luminal contents at the level of the transition point. The lack of IV contrast limits assessment of the renal parenchyma. No gross renal parenchymal mass or cyst demonstrated. No left renal or ureteral calculi, hydronephrosis, or hydroureter demonstrated. No bladder calculi. No bladder wall thickening. The prostate is normal in size. Lack of IV contrast limits assessment of the other solid organs. The gallbladder contains a small gallstone. The liver, bile ducts, pancreas, spleen, adrenals are unremarkable. No retroperitoneal or mesenteric mass or adenopathy. No pelvic mass or adenopathy. There are a few colonic diverticula. No evidence of diverticulitis. The appendix is normal. No small bowel distention. No free or loculated intraperitoneal air or fluid is evident. Distal esophagus, stomach, duodenum are unremarkable. The lung bases demonstrate posterior dependent atelectatic changes. The bones are unremarkable Impression: Mild right hydronephrosis and proximal hydroureter. Transition point in the mid ureter with soft tissue attenuation of the ureteral contents at the level of the transition point. This raises possibility of tumor, debris, hemorrhage, or stricture. Associated stranding of the ureter proximal to the transition point. No ureteral calculi demonstrated. Further evaluation by urology recommended Colonic diverticulosis. No evidence of diverticulitis Cholelithiasis Minimal dependent posterior pulmonary parenchymal atelectatic changes The CT scanner at [facility] is accredited by the [employer] and the scans are performed using protocols designed to limit radiation exposure to as low as reasonably achievable to attain images of sufficient resolution adequate for diagnostic evaluation.
== END 2018-06-06 20:00 | disposition home or self-care (01) ==
LOC: EMR 17:48
DX: R31.9 Hematuria, unspecified (principal); M32.9 Systemic lupus erythematosus, unspecified; J44.9 Chronic obstructive pulmonary disease, unspecified; I10 Essential (primary) hypertension; K80.20 Calculus of gallbladder without cholecystitis without obstruction; K57.90 Diverticulosis of intestine, part unspecified, without perforation or abscess without bleeding; K57.30 Diverticulosis of large intestine without perforation or abscess without bleeding; N13.30 Unspecified hydronephrosis; Z91.010 Allergy to peanuts; Z91.018 Allergy to other foods
CPT/HCPCS: 36415; 74176; 80053; 81003; 85025; 85610; 85730; 99284

== ENCOUNTER 2019-01-25 13:56 | Emergency (ER) | payer MEDICAID ==
[~2019-01-25] VITALS: Ht 182.9 cm; Wt 86.2 kg
[2019-01-25 14:00] VITALS: BP 102/73
--- NOTE | 2019-01-25 14:00 | NUR ---
ED Nurse Note: pt walked into ER c/o nodule on Rt breast. pt aao x4, calm. small nodule was being touched on Rt breast with pain level 2/10 per pt. skin clean and intact.
[2019-01-25] MEDS ORDERED: TYLENOL EXTRA500 MG ORAL (14:29)
--- NOTE | 2019-01-25 14:30 | Emergency Room Report ---
History of Present Illness General Chief Complaint: Skin Rash/Abscess Source: Medical Record Present Illness HPI 63-year-old male patient presents ER complaining of right bump on rest times 1 month. Reports mild pain on palpation. Denies nipple discharge. Denies fever , chest pain, shortness of breath, abdominal pain. Denies other aggravating or relieving factors. Denies nipple discharge. Denies recent weight loss. 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 Allergies: Coded Allergies: FISH DERIVED (Verified Allergy, Unknown, 06/13/16) PEANUT (Verified Allergy, Unknown, 06/13/16) Patient History Past Medical History: see triage record Reviewed Nursing Documentation: PMH: Agreed; PSxH: Agreed Nursing Documentation-PMH Past Medical History: No History, Except For Hx Cardiac Problems: Yes Hx Hypertension: Yes Hx Asthma: Yes Hx COPD: No - LUPUS Hx Gastrointestinal Problems: Yes - HEP C Review of Systems All Other Systems: negative except mentioned in HPI Physical Exam Vital Signs Date Time Temp Pulse Resp B/P (MAP) Pulse Ox O2 Delivery O2 Flow Rate FiO2 01/25/19 14:07 97.9 71 18 148/93 100 Room Air Sp02 EP Interpretation: reviewed, normal General Appearance: well appearing, no apparent distress, alert, GCS 15, non- toxic Head: normocephalic, atraumatic Eyes: bilateral eye normal inspection, bilateral eye PERRL ENT: hearing grossly normal, normal pharynx, no angioedema, normal voice, uvula midline, moist mucus membranes Neck: full range of motion, no meningismus, no bony tend Respiratory: lungs clear, normal breath sounds, no rhonchi, no respiratory distress, no accessory muscle use, no wheezing, speaking full sentences Musculoskeletal: back normal, digits/nails normal, gait/station normal, normal range of motion, non-tender Psychiatric: mood/affect normal Lymphatic: other - Small circular less than 1 cm circular lymph node in 11 to 12 o'clock position of right breast adjacent to areola, no overlying erythema or edema, no nipple discharge, no dimpling Medical Decision Making PA Attestation Dr. Rojo is my supervising Physician whom patient management has been discussed with. Diagnostic Impression: Primary Impression: Breast nodule ER Course Pt. presents to the ED c/o breast mass times 1 month. Ddx considered but are not limited to lymph node, lipoma, abscess, malignancy. Vital signs: are WNL, pt. is afebrile ER COURSE: Mild tender to palpation, likely swollen lymph node versus lipoma, less than 1 cm, advised patient follow-up with primary care provider for further evaluation and treatment. Discussed need for mammogram and further imaging. No overlying erythema or edema, no fever, low suspicion for abscess or cellulitis. Does not require antibiotics. ER precautions given. Provided with contact information for general surgeon. Take Motrin or Tylenol for pain symptoms. DISCHARGE: At this time pt is stable for d/c to home. Patient is resting comfortably, in no acute distress, nontoxic appearing, talking without difficulty. Patient to take medications as instructed Will provide with patient care instructions and any necessary prescriptions. Care plan and follow-up instructions provided. Patient instructed to follow-up with primary care provider in 3 - 5 days. Patient questions asked and answered. Patient reports understanding and agreement to treatment plan. ER precautions given. Patient instructed to return to ER immediately for any new or worsening of symptoms including but not limited to increasing SOB, persistent fever, chest pain, intractable vomiting. - Please note that this Emergency Department Report was dictated using [employer] silverer technology software, occasionally this can lead to erroneous entry secondary to interpretation by the dictation equipment. Last Vital Signs Date Time Temp Pulse Resp B/P (MAP) Pulse Ox O2 Delivery O2 Flow Rate FiO2 01/25/19 14:07 97.9 71 18 148/93 100 Room Air Disposition: HOME, SELF-CARE Condition: Stable Scripts Acetaminophen* (TYLENOL EXTRA STRENGTH*) 500 Mg Tablet 500 MG ORAL Q8H PRN for Prn Headache/Temp > 101, #30 TAB 0 Refills Prov: Luis Eduardo Vargas 01/25/19 Patient Instructions: Lymphadenopathy, Mammography, [id number] Additional Instructions: Followup with primary care provider in 3 -5 days. Discussed referral to general surgery. Discussed need for mammogram and further imaging. Take medications as directed. Patient questions asked and answered. ER precautions given, patient instructed to return to ER immediately for any new or worsening of symptoms. Luis Eduardo Vargas Jan 25, 2019 14:30
[2019-01-25 14:40] VITALS: BP 109/71
--- NOTE | 2019-01-25 14:40 | NUR ---
ER DISCHARGE NOTE: Patient is cleared to be discharged per ERMD, pt is aox4, on room air, with stable vital signs. pt was given dc instructions with specialist contact number, pt was able to verbalize understanding, pt id band removed. pt is able to ambulate with steady gait. pt took all belongings.
== END 2019-01-25 14:40 | disposition home or self-care (01) ==
LOC: EMR 14:29
DX: N63.10 Unspecified lump in the right breast, unspecified quadrant (principal); Z91.010 Allergy to peanuts; Z91.013 Allergy to seafood; I10 Essential (primary) hypertension; Z86.19 Personal history of other infectious and parasitic diseases
CPT/HCPCS: 99282

== ENCOUNTER 2019-04-30 15:46 | Emergency (ER) | payer MEDICAID ==
[~2019-04-30] VITALS: Ht 182.9 cm; Wt 86.2 kg
[~2019-04-30 15:46] MED LIST changes: +TYLENOL EXTRA500 MG ORAL
--- NOTE | 2019-04-30 16:01 | NUR ---
ED Nurse Note: PT WALKED IN TO ER TODAY FROM HOME. AOX4. PT C/O DECREASING HEARING LEFT EAR > RIGHT EAR X 4 DAYS AGO. PT DENIES ANY DRAINAGE OR BLEEDING FROM EARS. PT STATES HE SAW HIS PMD X 3 DAYS AGO DUE TO SWOLLEN LYMPH NODES AND WAS PRESCRIBED PENICILLIN 500MG. PT STATES HE HAS BEEN COMPLIANT WITH MEDICATIONS BUT HEARING HAS STILL CONTINUED TO WORSEN.
[2019-04-30 16:02] VITALS: BP 134/82
--- NOTE | 2019-04-30 16:19 | Emergency Room Report ---
History of Present Illness General Chief Complaint: Earache Source: Patient Present Illness HPI 63-year-old male with no significant past medical history here complaining of bilateral hearing loss x3 days. Patient infection and anterior left cervical lymphadenopathy. Patient has reduced hearing in both ears denies pain in his ears denies drainage from his ears. Denies feeling chills, cough and congestion. Denies vertigo, dizziness, tinnitus, nausea vomiting, abdominal pain, chest pain, head injury, shortness of breath, blurry vision, and all other associated symptoms. Allergies: Coded Allergies: FISH DERIVED (Verified Allergy, Unknown, 06/13/16) PEANUT (Verified Allergy, Unknown, 06/13/16) Patient History Past Medical History: see triage record Past Surgical History: unable to obtain Pertinent Family History: none Immunizations: UTD Reviewed Nursing Documentation: PMH: Agreed; PSxH: Agreed Nursing Documentation-PMH Past Medical History: No History, Except For Hx Cardiac Problems: Yes Hx Hypertension: Yes Hx Asthma: Yes Hx COPD: No - LUPUS Hx Cancer: Yes - kidney ca Hx Gastrointestinal Problems: Yes - HEP C Review of Systems All Other Systems: negative except mentioned in HPI Physical Exam Vital Signs Date Time Temp Pulse Resp B/P (MAP) Pulse Ox O2 Delivery O2 Flow Rate FiO2 04/30/ 15:50 97.9 72 17 140/85 (103) 99 Room Air Sp02 EP Interpretation: reviewed, normal General Appearance: normal inspection, well appearing, no apparent distress Head: normocephalic, atraumatic Eyes: bilateral eye normal inspection, bilateral eye PERRL ENT: uvula midline, moist mucus membranes, pharyngeal erythema, other - Bilateral cerumen impaction Neck: other - Left anterior cervical lymphadenopathy Respiratory: normal inspection, chest non-tender, lungs clear, no respiratory distress, no wheezing Cardiovascular #1: normal inspection, normal peripheral pulses, no edema, no murmur Gastrointestinal: normal inspection, no mass Musculoskeletal: normal inspection, back normal Neurologic: normal inspection, alert, oriented x3 Psychiatric: normal inspection, judgement/insight normal Skin: normal inspection, normal color, no rash, warm/dry Lymphatic: adenopathy - Left anterior cervical Medical Decision Making PA Attestation All my diagnosis and treatment plans were reviewed ad discussed with my supervising physician Dr. Pardo Diagnostic Impression: Primary Impression: Impacted cerumen of both ears Additional Impression: Left cervical lymphadenopathy ER Course 63-year-old male with no significant past medical history here complaining of bilateral hearing loss x3 days. Patient infection and anterior left cervical lymphadenopathy. Patient has reduced hearing in both ears denies pain in his ears denies drainage from his ears. Denies feeling chills, cough and congestion. Denies vertigo, dizziness, tinnitus, nausea vomiting, abdominal pain, chest pain, head injury, shortness of breath, blurry vision, and all other associated symptoms. Ddx considered but are not limited to: Otitis media, otitis externa, cerumen impaction, pharyngitis Vital signs: are WNL, pt. is afebrile H&PE are most consistent with: Cerumen impaction and pharyngitis and anterior left cervical lymphadenopathy ORDERS: [facility] ED INTERVENTIONS: None required at this time. DISCHARGE: At this time pt. is stable for d/c to home. Will provide printed patient care instructions, and any necessary prescriptions. Care plan and follow up instructions have been discussed with the patient prior to discharge. I advised the patient to continue taking his antibiotic for his throat infection and if he continues to have an enlarged lymph node on the left side follow-up with a primary care provider for further testing also ear lavage recommended to be requested by primary care provider Last Vital Signs Date Time Temp Pulse Resp B/P (MAP) Pulse Ox O2 Delivery O2 Flow Rate FiO2 04/30/19 16:02 98.0 68 16 134/82 100 Room Air Disposition: HOME, SELF-CARE Condition: Stable Scripts Carbamide Peroxide (DEBROX) 15 Ml Drops 10 DROP BOTH EARS TWICE A DAY for 4 Days, #30 ML 0 Refills Prov: Ricky Farrell 04/30/19 Patient Instructions: Cerumen Impaction Additional Instructions: Use drops as directed follow-up with your primary care provider for referral for ear lavage. You are currently on antibiotics for swollen tonsils and lymph node if you continue to have a swollen lymph node after you are finished with your antibiotics have your primary care provider ordered blood work for other possible reasons of lymph node enlargement Ricky Farrell Apr 30, 2019 16:19
[2019-04-30] MEDS ORDERED: DEBROX15 M1 BOTH EARS (16:20)
--- NOTE | 2019-04-30 16:21 | NUR ---
ED Nurse Note: PT SITTING PEACEFULLY IN CHAIR IN NAD. AO4. PRESCRIPTIONS AND DISCHARGE PAPERWORK EXPLAINED TO PT. PT VERBALIZES UNDERSTANDING AND ALL QUESTIONS ANSWERED. PRESCRIPTIONS AND DISCHARGE PAPERWORK GIVEN TO PT AND ID WRISTBAND REMOVED. PT WALKED OUT OF ER WITH STEADY GAIT AND ALL BELONGINGS.
[2019-04-30 16:22] VITALS: BP 132/80
== END 2019-04-30 16:23 | disposition home or self-care (01) ==
LOC: EMR 16:18
DX: H61.23 Impacted cerumen, bilateral (principal); R59.1 Generalized enlarged lymph nodes; Z91.010 Allergy to peanuts; Z91.013 Allergy to seafood; I10 Essential (primary) hypertension; Z85.528 Personal history of other malignant neoplasm of kidney; Z86.19 Personal history of other infectious and parasitic diseases
CPT/HCPCS: 99282

== ENCOUNTER → 2019-11-02 | Emergency (ER) | payer MEDICAID ==
[~2019-11-02] VITALS: Ht 182.9 cm; Wt 90.7 kg
[~2019-11-02] MED LIST changes: +DEBROX15 M1 BOTH EARS
--- NOTE | 2019-11-02 16:05 | NUR ---
ED Nurse Note:pt. came with c/o HTN but after his BP was checked and normal-he said that doesn't need to see MD and left ER with steady gait and his spouse
[2019-11-02 16:43] VITALS: BP 149/88
--- NOTE | 2019-11-02 16:51 | Emergency Room Report ---
History of Present Illness General Chief Complaint: Hypertension Source: Patient Present Illness Allergies: Coded Allergies: FISH DERIVED (Verified Allergy, Unknown, 06/13/16) PEANUT (Verified Allergy, Unknown, 06/13/16) Nursing Documentation-[facility] Past Medical History: No History, Except For Hx Cardiac Problems: Yes Hx Hypertension: Yes Hx Asthma: Yes Hx COPD: No - LUPUS Hx Cancer: Yes - kidney ca Hx Gastrointestinal Problems: Yes - HEP C Physical Exam Vital Signs Date Time Temp Pulse Resp B/P (MAP) Pulse Ox O2 Delivery O2 Flow Rate FiO2 11/02/19 16:03 97.9 68 17 149/88 (108) 99 Room Air Medical Decision Making Diagnostic Impression: Primary Impression: Patient left without being seen ER Course Patient left prior to MD evaluation Last Vital Signs Date Time Temp Pulse Resp B/P (MAP) Pulse Ox O2 Delivery O2 Flow Rate FiO2 11/02/19 16:43 97.9 17 149/88 99 Room Air 11/02/19 16:43 68 Status: unchanged Disposition: LEFT W/OUT BEING SEEN Condition: Stable Jossue Rojo MD Nov 02, 2019 16:51
== END | disposition left against medical advice (07) ==
LOC: EMR 16:16
DX: Z53.21 Procedure and treatment not carried out due to patient leaving prior to being seen by health care provider (principal); I10 Essential (primary) hypertension; J45.909 Unspecified asthma, uncomplicated; Z85.528 Personal history of other malignant neoplasm of kidney; Z86.19 Personal history of other infectious and parasitic diseases; Z91.013 Allergy to seafood; Z91.010 Allergy to peanuts

== ENCOUNTER 2019-11-03 13:53 | Emergency (ER) | payer MEDICAID ==
[~2019-11-03] VITALS: Ht 182.9 cm; Wt 90.7 kg
[2019-11-03 14:03] VITALS: BP 135/88
--- NOTE | 2019-11-03 14:13 | NUR ---
ED Nurse Note: PT CAME IN DUE TO ELEVATED BLOOD PRESSURE AT HOME 159/105 WITH HR OF 68. DENIE SPC OR DIZZINESS. TAKING AMLODIPINE 5MG AND METOPROLOL ER 50MG. AAO X4 AND AMBULATES WITH STEADY GAIT.
--- NOTE | 2019-11-03 15:09 | Emergency Room Report ---
History of Present Illness General Chief Complaint: Hypertension Source: Patient Present Illness HPI 64-year-old male presents to the emergency department with concerns of elevated blood pressure readings x2 days. Patient reports he has been having readings in the 150s over low 100s. Patient presented with several pictures of his blood pressure machine readings. Patient states that he currently is taking amlodipine as well as metoprolol. Patient reports he has history of lupus and only one kidney. Patient denies diabetes history. Patient denies headache, chest pain, dizziness, palpitations, shortness of breath or syncope. Pt. reports after drinking a glass of wine last night he had improvement of his BP. However, he had elevated BP again this morning. Denies pain at this time. 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" Hx Gastrointestinal Problems: No - one kidney Hx Dialysis: No History Of Psychiatric Problem: No Hx Neurological Problems: No Hx Cerebrovascular Accident: No Hx Seizures: No Review of Systems All Other Systems: negative except mentioned in HPI Physical Exam Vital Signs Date Time Temp Pulse Resp B/P (MAP) Pulse Ox O2 Delivery O2 Flow Rate FiO2 11/03/19 14:03 97.9 63 16 135/88 (104) 98 Room Air Sp02 EP Interpretation: reviewed, normal General Appearance: no apparent distress, alert, GCS 15, non-toxic Head: normocephalic, atraumatic Eyes: bilateral eye normal inspection, bilateral eye PERRL ENT: hearing grossly normal, normal voice Neck: full range of motion Respiratory: chest non-tender, lungs clear, normal breath sounds, speaking full sentences Cardiovascular #1: regular rate, rhythm, no edema Musculoskeletal: normal range of motion, gait/station normal, non-tender Neurologic: alert, motor strength/tone normal, oriented x3, sensory intact, responsive, speech normal Psychiatric: judgement/insight normal Lymphatic: no adenopathy Medical Decision Making PA Attestation Dr. Pardo is my supervising Physician whom patient management has been discussed with. Diagnostic Impression: Primary Impression: Elevated blood pressure reading ER Course 64-year-old male presents to the emergency department with concerns of elevated blood pressure readings x2 days. Patient reports he has been having readings in the 150s over low 100s. Patient presented with several pictures of his blood pressure machine readings. Patient states that he currently is taking amlodipine as well as metoprolol. Patient reports he has history of lupus and only one kidney. Patient denies diabetes history. Patient denies headache, chest pain, dizziness, palpitations, shortness of breath or syncope. Pt. reports after drinking a glass of wine last night he had improvement of his BP. However, he had elevated BP again this morning. Denies pain at this time. Vital signs: are WNL, pt. is afebrile H&PE are most consistent with benign elevated BP reading without evidence of endstage organ symptoms/ acute damage. No focal neurological deficits.Pt. is NAD , non-Toxic in appearance. ORDERS: none required at this time, the diagnosis is clinical ED INTERVENTIONS: None required at this time. DISCHARGE: At this time pt. is stable for d/c to home. Will provide printed patient care instructions, and any necessary prescriptions. Care plan and follow up instructions have been discussed with the patient prior to discharge. Last Vital Signs Date Time Temp Pulse Resp B/P (MAP) Pulse Ox O2 Delivery O2 Flow Rate FiO2 11/03/19 14:13 70 15 Room Air 11/03/19 14:03 97.9 135/88 98 Status: improved Disposition: HOME, SELF-CARE Condition: Stable Referrals: [facility],REFERRING (PCP) Patient Instructions: Form - Blood Pressure Record Sheet, Managing Your High Blood Pressure Additional Instructions: Take medications as directed. Keep a log of your blood pressure readings at home and take it with you to your follow-up visit with your primary care provider. Follow up with a Primary Care Provider in 3-5 days, even if your symptoms have resolved. Return sooner to ED if new symptoms occur, or current symptoms become worse. - Please note that this Emergency Department Report was dictated using [employer] technology software, occasionally this can lead to erroneous entry secondary to interpretation by the dictation equipment. Diana Patiño Nov 03, 2019 15:09
[2019-11-03 15:19] VITALS: BP 129/87
--- NOTE | 2019-11-03 15:19 | NUR ---
ER DISCHARGE NOTE: Patient is cleared to be discharged per PA, pt is aox4, on room air, with stable vital signs. pt was given dc instructions, pt was able to verbalize understanding, pt id band removed . pt is able to ambulate with steady gait. pt took all belongings.
== END 2019-11-03 15:19 | disposition home or self-care (01) ==
LOC: EMR 14:45
DX: I10 Essential (primary) hypertension (principal); Z85.54 Personal history of malignant neoplasm of ureter; Z90.5 Acquired absence of kidney
CPT/HCPCS: 99281